=== PATIENT | female | born 1995 | race Caucasian/White ===

== ENCOUNTER 2016-09-17 13:07 | Emergency (ER) | payer BC ==
[~2016-09-17] VITALS: Ht 162.6 cm; Wt 65.3 kg
[~2016-09-17 13:07] MED LIST: HYDR-1231 PO; SULF-222 PO; SULF1TAB34 PO; VALA100033 PO
--- OUTSIDE RECORDS SUMMARY | 2016-09-17 13:13 | XMS REPORT | Continuity of Care Document ---
Author Author [facility] Organization [facility] Address Unknown Phone Unavailable Care Team Providers Care Records Management Technician Name Role Phone NO, LOCAL PHYSICIAN PCP Unavailable Insurance Providers Payer Name Policy Number Subscriber Name Relationship Unknown Advance Directives Directive Response Recorded Date/Time Advance Directives No 12/18/14 10:19pm Resuscitation Status Full Code 12/18/14 10:19pm Problems Medical Problems Problem Onset Date Status Urinary tract infection Unknown Active Vaginal aphthous ulcer Unknown Active Urinary tract infection Unknown Active Medications Medication Dose Route Sig Days/Qty Instructions Order Date Discontinued Date Status Trimethoprim/Sulfamethoxazole 1 Tab PO TWICE A DAY 12/18/14 Active Sulfamethoxazole/Trimethoprim 1 Each PO TWICE A DAY 10 Qty 12/18/14 Active Hydrocodone Bit/Acetaminophen 1-2 Tab PO EVERY 6 HOURS PRN PAIN 15 Qty 12/18/14 Active Valacyclovir Hcl 1,000 Mg PO THREE TIMES A DAY 10 Days FOR SHINGLES 12/18 Active Social History Social History Problem Response Recorded Date/Time Alcohol Use Denies Use 12/18/2014 10:19pm Recreational Drug Use No 12/18/2014 10:19pm Recent Foreign Travel No 12/18/2014 10:19pm Recent Infectious Disease Exposure No 12/18/2014 10:19pm Smoking Status Never a Smoker 12/18/2014 10:19pm Query Response Start Date Stop Date Smoking Status Never a Smoker Hospital Discharge Instructions No hospital discharge instructions. Plan of Care No plan of care. Functional Status No functional status results. Allergies, Adverse Reactions, Alerts Allergen Type Severity Reaction Status Last Updated No Known Drug Allergies Active 12/18/14 Immunizations Name Given Type Tetanus Booster (TDap) Less than 5yrs Historical Vital Signs Acute Vital Signs Vital Response Date/Time Temperature (Fahrenheit) 97.6 degrees F (97.6 - 99.5) Temperature (Calculated Celsius) 36.77300 degrees C (36.4 - 37.5) Temperature Source Temporal Pulse Rate (adult) 90 bpm (60 - 90) Respiratory Rate 20 bpm (12 - 24) O2 Sat by Pulse Oximetry 97 % (88 - 100) Blood Pressure 100/63 mm Hg Pain Pain Intensity 7 Height (Feet) 5 feet Height (Inches) 4 inches Height (Calculated Centimeters) 162.304215 cm Weight (Pounds) 145 pounds Weight (Calculated Kilograms) 65.719575 kilograms Calculated BMI 24.89 Results Laboratory Results Test Name Result Units Flags Reference Collection Date/Time Result Date/ Time Comments Urine Color YELLOW 12/18/2014 10:33pm 12/18/2014 10:49pm Urine Clarity SLIGHTLY CLOUDY 12/18/2014 10:pm 12/18/2014 10: 49pm Urine pH 7 5-9 12/18/2014 10:12/18/2014 10:49pm Urine Specific [place] 1.015 * 1.016-1.022 12/18/2014 10:pm 2014 10:49pm Urine Protein 1+ * NEGATIVE 12/18/2014 10:12/18/2014 10:49pm Urine Glucose (UA) NEGATIVE NEGATIVE 12/18/2014 10:pm 12/18/2014 10 :49pm Urine RBC (Auto) 3+ * NEGATIVE 12/18/2014 10:12/18/2014 10:49pm Urine Ketones NEGATIVE NEGATIVE 12/18/2014 10:pm 12/18/2014 10: 49pm Urine Nitrite NEGATIVE NEGATIVE 12/18/2014 10:pm 12/18/2014 10: 49pm Urine Bilirubin NEGATIVE NEGATIVE 12/18/2014 10:pm 12/18/2014 10: 49pm Urine Urobilinogen NORMAL MG/DL NORMAL 12/18/2014 10:pm 12/18/2014 10 :49pm Urine Leukocyte Esterase 2+ * NEGATIVE 12/18/2014 10:pm 12/18/2014 10 :49pm Urine RBC 0-2 /HPF 12/18/2014 10:pm 12/18/2014 10:49pm Urine WBC 0-2 /HPF 12/18/2014 10:33pm 12/18/2014 10:49pm Urine Bacteria MODERATE /HPF * 12/18/2014 10:33pm 12/18/2014 10:49pm Urine Squamous Epithelial Cells 2-5 /HPF 12/18/2014 10:33pm 2014 10:49pm Urine Crystals PRESENT /LPF * 12/18/2014 10:33pm 12/18/2014 10:49pm Urine Amorphous Sediment MOD MEGAN PHOSPHATE /LPF * 12/18/2014 10:33pm 12/18/2014 10:49pm Urine Casts NONE /LPF 12/18/2014 10:33pm 12/18/2014 10:49pm Urine Mucus NEGATIVE /LPF 12/18/2014 10:33pm 12/18/2014 10:49pm Urine Culture Indicated YES 12/18/2014 10:33pm 12/18/2014 10:49pm Procedures No known history of procedures. Encounters Encounter Location Date/Time Departed [facility] 12/18/14 10:07pm Recent Diagnosis
[2016-09-17] MEDS ORDERED: RT-ALBUINH IH (13:49)
[2016-09-17] MEDS ORDERED: OCP (13:49)
--- NOTE | 2016-09-17 14:22 | ED Integumentary General ---
General Chief Complaint: Skin/Wound Problems Stated Complaint: LUMP ON BACK OF HEAD/NECK Nursing Triage Note: "BUMP" ON POSTERIOR HEAD. GOLF BALL SIZED ON WEDNESDAY MORNING. SMALLER TODAY BUT IS [employer]. ALSO TODAY HAD SUDDEN COLD ACHY FEELING IN LEFT ARM. Source: patient Exam Limitations: no limitations History of Present Illness Time seen by provider: 14:19 Timing/Duration: just prior to arrival Severity: moderate Associated Symptoms: denies symptoms Allergies and Home Medications Allergies Coded Allergies: No Known Drug Allergies (Unverified , 12/18/14) Home Medications (Reported) Albuterol Sulfate 8.5 Gm Hfa.aer.ad 1-2 PUFF IH (Reported) Constitutional: see HPINo chills, No fever EENTM: nose congestion nose pain see HPI throat pain throat swelling Respiratory: no symptoms reported cough Cardiovascular: no symptoms reported Genitourinary: no symptoms reported Musculoskeletal: no symptoms reported Skin: no symptoms reported Psychiatric/Neurological: No Symptoms Reported Endocrine: No Symptoms Reported Hematologic/Lymphatic: No Symptoms Reported Past Lheqqkf-Mstdpx-Kuavdw Hx Patient Social History Alcohol Use: Denies Use Recreational Drug Use: No Smoking Status: Never a Smoker Recent Foreign Travel: No Contact w/Someone Who Travel: No Recent Infectious Disease Expo: No Recent Hopitalizations: No Physical Abuse Screen: No Sexual Abuse: No Immunizations Up To Date Tetanus Booster (TDap): Less than 5yrs Surgeries HX Surgeries: Yes (cyst removal, tubes in ears) Surgeries: Adenoidectomy, Tonsillectomy Respiratory Hx Respiratory Disorders: Yes Respiratory Disorders: Asthma Cardiovascular Hx Cardiac Disorders: No Neurological Hx Neurological Disorders: No Genitourinary Hx Genitourinary Disorders: No Gastrointestinal Hx Gastrointestinal Disorders: No Musculoskeletal Hx Musculoskeletal Disorders: No Endocrine Hx Endocrine Disorders: No HEENT HX ENT Disorders: No Cancer Hx Cancer: No Psychosocial Hx Psychiatric Problems: No Integumentary HX Skin/Integumentary Disorder: Yes Skin/Integumentary Disorders: Recent Skin Changes Blood Transfusions Hx Blood Disorders: No Adverse Reaction to a Blood Tr: No Physical Exam Vital Signs Vital Sign - Last 12Hours 09/17/16 13:39 Temp 98.1 Pulse 79 Resp 16 B/P 115/80 Pulse Ox 100 Capillary Refill : Less Than 3 Seconds General Appearance: WD/WN no apparent distress HEENT: PERRL/EOMI normal ENT inspection Neck: non-tender full range of motion Respiratory: no respiratory distress no accessory muscle use Neurologic/Psychiatric: alert normal mood/affect oriented x 3 Skin: normal color warm/dry Comments nodule to left side of neck and base of scalp without erythema. tender and mobile. Progress/Results/Core Measures Results/Orders Vital Signs/I&O Vital Sign - Last 12Hours 09/17/16 13:39 Temp 98.1 Pulse 79 Resp 16 B/P 115/80 Pulse Ox 100 Blood Pressure Mean: 92 Departure Impression Impression: Primary Impression: Lymphadenopathy of head and neck Disposition: 01 HOME, SELF-CARE Condition: Stable Departure-Patient Inst. Decision time for Depature: 14:21 Referrals: NO,LOCAL PHYSICIAN (PCP/Family) Primary Care Physician Patient Instructions: NO INSTRUCTIONS GIVEN Add. Discharge Instructions: All discharge instructions reviewed with patient and/or family. Voiced understanding. FIOR ANGELO APRN Sep 17, 2016 14:22
[2016-09-17 14:25] VITALS: BP 118/61
== END 2016-09-17 14:28 | disposition home or self-care (01) ==
LOC: EDUNIT# 13:07 → ER 13:09
DX: R59.0 Localized enlarged lymph nodes (principal)
CPT/HCPCS: 99281